=== PATIENT | female | born 1960 | race African-American/Black ===

== ENCOUNTER 2025-04-18 18:13 | Inpatient (IN) | payer BC ==
[2025-04-18] MEDS ORDERED: Ondansetron PF 4 MG/2 ML Vial IVP PRN (19:40)
[2025-04-18] MEDS ORDERED: Dextrose 50% Abboject 50 ML SYRINGE SLOW IVP PRN (19:40)
[2025-04-18] MEDS ORDERED: Glucagon 1 MG/ML KIT IM PRN (19:40)
[2025-04-18] MEDS ORDERED: Acetaminophen 325 MG TAB PO PRN (19:40)
[2025-04-18 20:21] VITALS: BMI 34.3
[2025-04-18] MEDS: PNEUMOC 20-VAL CONJ-DIP CRM/PF 0.5 ML SYRINGE IM ONE (21:10)
[2025-04-18] MEDS: Pantoprazole 40 MG VIAL IVP SCH (21:13)
[2025-04-19 00:21] LABS: Hematocrit 33.1 % (36.0-47.0); Hemoglobin 10.4 g/dL (12.0-16.0)
[2025-04-19 08:51] LABS: #Basophils 0.04 10x3/uL (0.0-0.2); #Eosinophils 0.15 10x3/uL (0.0-0.7); #Monocytes 0.39 10x3/uL (0.11-0.59); #Neutrophils 4.71 10x3/uL (1.40-6.50); %Basophils 0.6 % (0.0-1.0); %Eosinophils 2.1 % (0.0-10.0); %Lymphocytes 24.6 % (21.0-51.0); %Monocytes 5.5 % (0.0-10.0); %Neutrophils 67.1 % (42.0-75.0); Hematocrit 38.0 % (36.0-47.0); Hemoglobin 11.6 g/dL (12.0-16.0); Mean Corpuscular Hemoglobin 27.7 pg (27.0-31.0); Mean Corpuscular Volume 90.7 fL (78.0-98.0); Platelet Count 303 10x3/uL (130-400); Red Blood Cell (RBC) Count 4.19 mill/uL (4.20-5.40); White Blood Cell (WBC) Count 7.03 10x3/uL (4.8-10.8)
[2025-04-19 09:14] LABS: Anion Gap 12 mmol/L (10-20); BUN (Urea Nitrogen) 9 mg/dL (9.8-20.1); Calc. Creatinine Clearance 112 mL/min (70-130); Calcium 9.2 mg/dL (7.8-10.44); Carbon Dioxide 28 mmol/L (23-31); Chloride 107 mmol/L (98-107); Glucose 108 mg/dL (80-115); Potassium 4.1 mmol/L (3.5-5.1); Sodium 143 mmol/L (136-145)
[2025-04-19 12:30] VITALS: BP 139/68; TEMP 98.2
[2025-04-19] MEDS ORDERED: Albuterol 200 PUFF (6.7GM INHALER) INH PRN (12:30)
[2025-04-19 12:36] LABS: Hematocrit 37.4 % (36.0-47.0); Hemoglobin 11.3 g/dL (12.0-16.0)
[2025-04-19] MEDS: Metoprolol Succinate XL 25 MG ER.TAB PO SCH (15:17)
[2025-04-20] MEDS ORDERED: glipiZIDE 5 MG TAB PO SCH (07:30)
[2025-04-20] MEDS ORDERED: Pantoprazole 40 MG DR.TAB PO SCH (09:00)
[2025-04-20] MEDS ORDERED: GLIPIZIDE 2.5 MG PO SCH (09:00)
[2025-04-20] MEDS ORDERED: Non-Formulary Item 1 EACH (Omeprazole [Omeprazole] 20 MG Capsule.Dr) PO SCH (09:00)
[2025-04-20] MEDS ORDERED: Lisinopril 10 MG TAB PO SCH (09:00)
== END 2025-04-19 15:29 | disposition home or self-care (01) | DRG 379 ==
LOC: T4-A 18:13 → OBSVTOIN 19:40
PROVIDERS: ATTEND Internal Medicine
DX: K57.31 Diverticulosis of large intestine without perforation or abscess with bleeding (principal); I10 Essential (primary) hypertension; E11.9 Type 2 diabetes mellitus without complications; F41.9 Anxiety disorder, unspecified; F17.210 Nicotine dependence, cigarettes, uncomplicated; I25.10 Atherosclerotic heart disease of native coronary artery without angina pectoris; R05.3 Chronic cough; I25.2 Old myocardial infarction; Z98.890 Other specified postprocedural states; Z79.899 Other long term (current) drug therapy; Z79.82 Long term (current) use of aspirin; Z79.84 Long term (current) use of oral hypoglycemic drugs; Z79.891 Long term (current) use of opiate analgesic; Z98.51 Tubal ligation status
CPT/HCPCS: 36415; 36416; 80048; J2470; J7030